=== PATIENT | female | born 1980 | race Caucasian/White ===

== ENCOUNTER → 2019-07-17 | Outpatient (CLI) | payer BC ==
[~2019-07-17] MED LIST: No meds per pt.
[2019-07-17 09:04] LABS: BASOPHILS # (AUTO) 0.03 x10^3/uL (0-0.1); BASOPHILS % (AUTO) 0 % (0-1); EOSINOPHILS # (AUTO) 0.38 x10^3/uL (0-0.4); EOSINOPHILS % (AUTO) 4 % (1-7); LYMPHOCYTES # (AUTO) 1.58 x10^3/uL (1-3.4); LYMPHOCYTES % (AUTO) 16 % (22-44); MD NO; MEAN CORPUSCULAR HEMOGLOBIN 29.4 pg (27.0-34.8); MEAN CORPUSCULAR HGB CONC 34.1 g/dL (32.4-35.8); MEAN CORPUSCULAR VOLUME 86.2 fL (80-100); MEAN PLATELET VOLUME 7.3 fL (7.4-10.4); MONOCYTES # (AUTO) 0.72 x10^3/uL (0.2-0.8); MONOCYTES % (AUTO) 7 % (2-9); NEUTROPHILS # (AUTO) 7.17 x10^3/uL (1.8-6.8); NEUTROPHILS % (AUTO) 73 % (42-75); PLATELET COUNT 314 x10^3/uL (130-400); RED BLOOD COUNT 4.79 x10^6/uL (3.82-5.3); RED CELL DISTRIBUTION WIDTH 13.8 % (9.6-15.2)
[2019-07-17 09:06] LABS: MICROSCOPIC NOT IND
[2019-07-17 09:11] LABS: CULTURE INDICATED? NO
[2019-07-17 11:21] LABS: CALCIUM 9.1 mg/dL (8.5-10.1); CHLORIDE 108 mmol/L (98-107)
[2019-07-17 11:29] LABS: ALANINE AMINOTRANSFERASE 15 U/L (12-78); ALBUMIN 3.5 g/dL (3.4-5.0); ALKALINE PHOSPHATASE 55 U/L (45-117); BILIRUBIN,TOTAL 0.4 mg/dL (0.2-1.0); CREATININE 0.71 mg/dL (0.55-1.02)
[2019-07-17 11:36] LABS: ANION GAP 5 mmol/L (5-15)
== END | disposition home or self-care (01) ==
LOC: STAR 08:14
PROVIDERS: ATTEND Obstetrics & Gynecology
DX: Z01.818 Encounter for other preprocedural examination (principal); D25.0 Submucous leiomyoma of uterus
CPT/HCPCS: 36415; 80053; 81003; 84702; 85025